=== PATIENT | male | born 1980 | race Caucasian/White ===

== ENCOUNTER 2023-04-22 08:20 | Observation (INO) | payer OTHER, SELFPAY ==
[2023-04-22] VITALS (10 sets, daily range): BP systolic 130–150; BP diastolic 69–91; PULSE 59–77; RESP 16–18; TEMP 36.7–37.2; O2SAT 97–100; BMI 26.3
--- NOTE | 2023-04-22 | ECHO_ITS ---
Patient Info Name: Bertin Britt Age: 42 years : 1980 Gender: Male Ht: 69 in Wt: 178 lbs BSA: 2.00 m2 HR: 63 bpm BP: 131 / 90 mmHg Heart Rhythm: Sinus Rhythm Technical Quality: Good Exam Date: 04/22/2023 3:46 PM Exam Location: [facility] Patient Status: Outpatient Admit Date: 04/22/2023 Staff Ordering Physician: Darien Champion APRN Front End Specialist: Tiarra Lagunas RDCS Attending Provider: Rebceca Le DO Referring Physician: Akira RUSSELL; Exam Type: CA echo doppler w bubble study Study Info Indications - dysphasia, TIA Complete two-dimensional, color flow and Doppler transthoracic echocardiogram is performed with agitated saline. Contrast/Agitated Saline Contrast/Ag. Saline: Agitated Saline Amount: 20.00 ml Administered By: Freda Tanner RN Existing IV Access: Yes IV Access Condition: patent with no signs of infiltration Summary 1. Left ventricular chamber dimension is normal. 2. Left ventricular systolic function is normal, estimated at 60-65%. 3. The left ventricular diastolic function is normal. 4. E/e' 6 is not elevated. 5. There is mild aortic valve sclerosis. 6. There is trace tricuspid valve regurgitation. Left Ventricle E/e' 6 is not elevated. Left ventricular chamber dimension is normal. Left ventricular systolic function is normal, estimated at 60-65%. The left ventricular diastolic function is normal. Right Ventricle Right ventricular systolic function is normal and with normal TAPSE 2.8 cm. Right ventricular chamber dimension is normal. Left Atria Left atrial chamber dimension is normal. Right Atria Right atrial chamber dimension is normal. Atrial Septum Agitated saline injection with and without valsalva maneuver opacified right side cardiac chambers without shunt to left side cardiac chambers. Intact interatrial septum visualized by 2D and agitated saline imaging. Aortic Valve The aortic valve is trileaflet. There is mild aortic valve sclerosis. There is no aortic valve stenosis. There is no aortic valve regurgitation. Pulmonic Valve There is no pulmonic regurgitation. Mitral Valve There is no mitral valve stenosis. There is no mitral valve regurgitation. Tricuspid Valve There is trace tricuspid valve regurgitation. RVSP is not calculated due to an inadequate TR jet. Pericardium/Pleural There is no pericardial effusion. Inferior Vena Cava Normal inferior vena cava with >50% collapse upon inspiration consistent with normal right atrial pressure, 5 mmHg. Aorta The aortic root size at the sinus of Valsalva is normal. Left Ventricular Outflow Tract Name Value Normal LVOT 2D LVOT Diameter 2.0 cm LVOT Doppler LVOT Peak Gradient 3 mmHg LVOT Mean Gradient 2 mmHg LVOT VTI 15 cm LVOT VTI/AV VTI Ratio 0.6 LVOT Stroke Volume 48 ml LVOT CO 2.9 l/min LVOT CI 1.5 l/min/m2 Pulmonic Valve Na
--- NOTE | ~2023-04-22 | MR_ITS ---
MRI of the brain Clinical History: Dysphagia, headache Technique: Axial and sagittal T1-weighted images were acquired. These were followed by axial T2-weigh oliverio, diffusion weighted, gradient, and FLAIR images. Following intravenous administration of 15 cc Mu ltiHance gadolinium, T1-weighted fat-sat imaging was performed in the axial and coronal planes. Findings: No abnormal signal seen in the brain parenchyma. No acute infarct, intracranial hemorrhage, or mass lesion. Ventricles and subarachnoid spaces are unremarkable. Orbits are unremarkable. Paranasal sinuses and m astoid air cells are clear. Major intracranial flow voids are intact. Sagittal midline structures are intact. No abnormal postcontrast enhancement identified. IMPRESSION: Unremarkable exam. Reviewed, dictated and finalized at location M. IMPRESSION: Unremarkable exam.
--- NOTE | ~2023-04-22 | US_ITS ---
EXAMINATION: US carotid duplex BI DATE: 04/22/2023 16:59 INDICATION: Dysphasia. Transient ischemic episode. TECHNIQUE: Grayscale, color Doppler, and pulsed Doppler images of the cervical carotid arteries were obtained. The degree of vessel stenosis is placed in one of the following categories: normal, <50%, 5 0-69%, >=70% but less than near-occlusion, near-occlusion, or total occlusion. Note that percent sten osis relative to normal distal artery lumen diameter is indirectly measured from velocity measurement s as described by Pedro, et al. Radiology 2003; 229:340-346. COMPARISON: None. FINDINGS: RIGHT: The right common carotid artery (CCA) peak systolic velocity (PSV) is 107 cm/s. The right internal ca rotid artery (ICA) PSV is 77 cm/s. The right ICA end-diastolic velocity (EDV) is 36 cm/s. The right I CA/CCA PSV ratio is 0.7. Grayscale and color Doppler images demonstrate no appreciable stenosis or pl aque in the ICA. The external carotid artery (ECA) PSV is 86 cm/s. There is antegrade flow in the rig ht vertebral artery. LEFT: The left CCA PSV is 93 cm/s. The left ICA PSV is 85 cm/s. The left ICA EDV is 37 cm/s. The left ICA/C CA PSV ratio is 0.9. Grayscale and color Doppler images yield an estimate of <50% diameter reduction from minimal plaque in the ICA. The ECA PSV is 111 cm/s. There is antegrade flow in the left vertebra l artery. IMPRESSION: 1. No appreciable plaque or stenosis in the right internal carotid artery. 2. <50% stenosis from minimal plaque in the left internal carotid artery. Reviewed, dictated and finalized at location A.
--- NOTE | ~2023-04-22 | CT_ITS ---
EXAMINATION: CT BRAIN W/O DATE: 04/22/2023 08:33 INDICATION: Memory issues. TECHNIQUE: Computed tomography (CT) of the head was performed without intravenous contrast. The dose- length product was 605.33 mGy-cm. Automated exposure control and iterative reconstruction technique w ere employed. COMPARISON: No prior studies for comparison. FINDINGS: Normal brain parenchymal volume for age. Normal -white differentiation. No acute intrac ranial hemorrhage, infarction, mass or mass effect. No ventriculomegaly or midline shift. Midline sagittal images demonstrate a normal corpus callosum, c raniovertebral junction and sella turcica. Basilar cisterns are patent. There is minimal mucosal thickening of the ethmoid and right frontal sinuses. Mastoids are pneumatize d. No depressed skull fractures. IMPRESSION: 1. No acute intracranial abnormality. Reviewed, dictated and finalized at location L.
--- NOTE | ~2023-04-22 | XR_ITS ---
EXAMINATION: XR chest 1V portable 04/22/2023 09:02 INDICATION: CVA. Weakness. PROCEDURE: AP portable chest COMPARISON: No prior studies for comparison. FINDINGS: The lungs are clear. The cardiomediastinal silhouette is within normal limits. There are no pleural effusions. There is no pneumothorax suspected. IMPRESSION: 1: NO ACUTE CARDIOPULMONARY DISEASE. Reviewed, dictated and finalized at location L.
--- NOTE | 2023-04-22 08:27 | ECG_ITS ---
Measurements Intervals [place] Rate: 90 P: 61 LA: 136 QRS: 44 QRSD: 94 T: -4 QT: 351 QTc: 431 Interpretive Statements SINUS RHYTHM NONSPECIFIC ST & T-WAVE ABNORMALITY NO PREVIOUS ECG AVAILABLE FOR COMPARISON Electronically Signed On 04-22-2023 16:16:53 CDT by Ephraim Richardson M.D.
[2023-04-22 08:30] LABS: Glucose Point of Care 134 mg/dl (65-105)
[2023-04-22 08:42] LABS: Basophils Percent Auto 0.4 % (0.2-1.2); Eosinophils Absolute Auto 0.1 K/mm3 (0-0.3); Eosinophils Percent Auto 1.2 % (0-4.4); Hematocrit 42.9 % (42.0-52.0); Hemoglobin 14.7 g/dL (14.0-18.0); Immature Granulocyte Absolute 0.01 K/mm3 (0.00-0.031); Immature Granulocyte Percent A 0.2 % (0-0.5); Lymphocytes Absolute Auto 2.51 K/mm3 (0.9-3.2); Lymphocytes Percent Auto 44.3 % (18.3-44.2); Mean Corpuscular HGB Conc 34.3 g/dl (32-36); Mean Corpuscular Hemoglobin 31.1 pg (26-34); Mean Corpuscular Volume 90.7 fl (80-100); Mean Platelet Volume 9.1 fl (7.4-10.4); Monocytes Absolute Auto 0.5 K/mm3 (0.1-0.6); Monocytes Percent Auto 9.4 % (2.6-8.5); Neutrophils Absolute Auto 2.5 K/mm3 (1.3-6.7); Neutrophils Percent Auto 44.5 % (45.5-73.1); Platelet Count Result 264 k/mm3 (150-375); Red Blood Count 4.73 M/mm3 (4.6-6.20); Red Cell Distribution Width 12.8 % (11.5-14.5); White Blood Count 5.7 K/mm3 (4.5-10.0)
[2023-04-22 08:53] LABS: Partial Thromboplastin Time 29.8 SECONDS (22.3-36.8)
[2023-04-22 08:54] LABS: Alanine Aminotransferase 33 U/L (6-50); Alkaline Phosphatase 55 U/L (38-126); Anion Gap 7 mmol/L (8-16); Aspartate Amino Transferase 35 U/L (17-59); Bilirubin,Total 0.8 mg/dL (0.2-1.3); Blood Urea Nitrogen 22 mg/dL (9-20); Calcium 9.5 mg/dL (8.4-10.2); Carbon Dioxide 31 mmol/L (22-30); Chloride 102 mmol/L (98-107); Estimated CRCL calculation 96 ml/min; Estimated Glomerular Filt Rate > 60; Glucose 124 mg/dL (65-110); Potassium 3.6 mmol/L (3.4-5.0); Sodium 140 mmol/L (137-145)
[2023-04-22 09:06] LABS: Troponin I < 0.012 ng/mL (0.000-0.034)
--- NOTE | 2023-04-22 10:01 | ED.NEUROSD ---
HPI - Neuro Symptoms/Deficit General Chief Complaint: Suspected CVA Stated Complaint: memory issues, focus issues Time Seen by Provider: 04/22/23 08:40 History of Present Illness HPI Narrative: Pt states had period of difficulty concentrating. Pt couldn't remember names of clients and partners and was confused. Pt thought he might have covid so did home test which was negative. Pt says is a little better now but still not himself. Pt denies LAZO or focal neuro symptoms. Related Data Home Medications Medication Instructions Recorded Confirmed erythromycin with ethanol 2 % 1 applic topical BID PRN Dry skin 04/22/23 04/22/23 topical gel Allergies Allergy/AdvReac Type Severity Reaction Status Date / Time NKDA Allergy Unknown Uncoded 04/26/03 12:15 NKFA Allergy Unknown Uncoded 04/26/03 12:15 Review of Systems Review of Systems: All systems reviewed & are unremarkable except as noted in HPI and below PMFSH Past Medical History Medical History (Updated 04/22/23 @ 16:01 by Kaur Van NP) Headache Surgical History Surgical History H/O sinus surgery H/O vasectomy Family History Family History Mother Hyperlipidemia Father Hypertension Sibling Hypertension Social History Social History (Updated 04/22/23 @ 16:02 by Kaur Van NP) Social History: The patient lives with his and has children. 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 Code status full code Smoking status: Never smoker Alcohol intake: current Drinks per week: 14 Alcohol use details: 2 drinks daily on average, may drink 6 or more only 1 or 2 times a month Substance use: never Lack of Transportation: No Lack of Food: Never True Current Housing: I Have Housing Concerned About Future Housing: No Difficulty Paying Gas/Electric Bills: No Difficulty Paying for Meds: No Currently Unemployed: No Education: Master's Degree or Higher Difficulty w/ Childcare or Family Care: No Living arrangements: with family Additional living arrangements comments: , son and 2 dogs Occupation/Education: occupation 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 Gender identity (if verbalized by the patient): Male Sexual Orientation (if Verbalized by the Patient): Straight or Heterosexual Spiritual care concerns: No Exam Const: General: cooperative and no acute distress Nutritional Appearance: average body habitus Orientation/consciousness: patient oriented x3 Limitations: no limitations Eyes: General: appearance normal, both eyes and all related structures Eyelids: eyelids normal Conjunctivae: conjunctivae normal Neck: Neck: normal visual inspection and full ROM Resp: Effort & Inspection: normal respiratory effort Auscultation: clear to auscultation bilaterally Cardio: Rate: regular rate Rhythm: regular rhythm GI: Inspection: normal to inspection Auscultation: normal bowel sounds Back/Spine/Pelvis: Back: no CVA tenderness Skin: General skin exam: normal color and no rashes or lesions noted Neuro: General: patient oriented x3, moves all extremities, no meningeal signs, no focal motor deficits and CN's II-XI intact bilaterally Cognition (Neuro): normal cognition Speech: normal speech Extrem: General: normal to inspection and full ROM Psych: Appearance: grossly normal Mental Status: mental status grossly normal Speech and movement: Normal speech and movement present Affect: normal affect Attitude: cooperative Thought process: Normal thought process present Thought content: Yes Normal thought content present Insight: Good insight present (Psych) Judgement: Good judgement present (Psych) Course Vital Signs Vital signs: Vital Signs Temperature 98.9 F 04/22/23 08:24 Pulse Rate 77 04/22/23 08:24 Respir
[2023-04-22] MEDS: ASPIRIN 81 MG CHEWABLE TABLET 324 MG PO (10:38)
[2023-04-22 12:35] LABS: Amphetamine Screen Urine Negative (Negative); Barbiturate Screen Urine Negative (Negative); Benzodiazepines Screen Urine Negative (Negative); Cannabinoid Screen Urine Negative (Negative); Cocaine Screen Urine Negative (Negative); Methadone Screen Urine Negative (Negative); Opiate Screen Urine Negative (Negative); Phencyclidine Screen Urine Negative (Negative)
--- NOTE | 2023-04-22 13:17 | PM.IMHP ---
H&P: HPI History of Present Illness Date/Time: 04/22/23 13:17 Chief Complaint: Suspected CVA Narrative: This is a 42-year-old male patient who has no past medical history. The patient woke up around 6 or 630 this morning and had no difficulties. The patient stated that around 8:00 a.m. this morning he was having some blurred vision and difficulty seeing. The patient stated that he was forgetting things that he normally knows how to do. The patient was forgetting coworkers names that he was per normally well aware of. And he stated that he had multiple emails and was not able to respond to them. The patient stated that he had COVID 6 months ago and felt like he may have brain fog like he did when he had COVID. The patient to go home test of COVID which was negative. The patient stated that he had a 3 day weekend and was very active riding on a long bike ride. The patient can recall the events of this morning as well as the weekend. However earlier this morning he could not remember people's names are remember how to respond to people's emails. It was also reported that he was texting abnormal things to his . And he stated that he knew what he wanted to say and right but it came out differently. The patient stated that his speech was abnormal as well. The patient stated that after 8:00 a.m. he felt that he was not right any took an aspirin after purchasing them from the pharmacy. The patient is now back to his baseline. He has no focal weakness. His vision is now clear. Chest x-ray was read as no acute cardiopulmonary disease. Head CT was read as no acute intracranial abnormality. His total CK was 158. His urine drug screen was found to be negative. The patient was given an aspirin here. The patient is being admitted to observation status on the date of service of 04/22/2023. Review of Systems Review of Systems: All systems reviewed & are unremarkable except as noted in HPI and below Constitutional: Constitutional: Reports as per HPI and Reports no additional constitutional complaints Eyes: Eyes: Reports as per HPI and Reports no additional eye complaints ENT: Reports system reviewed and no additional complaints, except as documented and Reports Normal hearing present Cardiovascular: Cardiovascular: Reports no additional cardiovascular complaints Respiratory: Respiratory: Reports no additional respiratory complaints and Reports no additional respiratory complaints Gastrointestinal: Gastrointestinal: Reports as per HPI and Reports no additional gastrointestinal complaints Musculoskeletal: Musculoskeletal: Reports no additional musculoskeletal complaints Integumentary/Breasts: Skin/Breast: Reports system reviewed and no additional complaints, except as docu and Reports as per HPI Neurologic: Reports system reviewed and no additional complaints, except as documented, Reports as per HPI and Reports Normal hearing present Psychiatric: Psychiatric: Reports no additional psychiatric complaints and Reports as per HPI Endocrine: Endocrine: Reports no additional endocrine complaints Hematologic/Lymphatic: Hematologic/Lymphatic: Reports no additional hematologic/lymphatic complaints Allergic/Immunologic: Allergic/Immunologic: Reports no additional allergic/immunologic complaints [facility] Past Medical History Medical History (Updated 04/22/23 @ 16:01 by Kaur Van NP) Headache Surgical History Surgical History H/O sinus surgery H/O vasectomy Family History Family History Mother Hyperlipidemia Father Hypertension Sibling Hypertension Social History Social History (Updated 04/22/23 @ 16:02 by Kaur Van NP) Social History: The patient lives with his and has children. 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 Code status full code Smoking status: Never smo
[2023-04-22 15:35] LABS: Creatine Kinase 158 U/L (55-170)
[2023-04-22] MEDS: ACETAMINOPHEN 325 MG TABLET 650 MG PO (18:58)
[2023-04-22 20:34] LABS: Cholesterol 143 mg/dL (0-200); HDL Direct 48 mg/dL; Triglycerides 82 mg/dL (<150)
[2023-04-22 20:39] LABS: LDL Cholesterol Direct 70 mg/dL
[2023-04-23] VITALS: PULSE 59
[2023-04-23 04:00] VITALS: PULSE 68
[2023-04-23 06:00] VITALS: BP 120/68; PULSE 77; RESP 20; TEMP 36.7; O2SAT 100
[2023-04-23 06:40] LABS: Basophils Percent Auto 0.5 % (0.2-1.2); Eosinophils Absolute Auto 0.1 K/mm3 (0-0.3); Eosinophils Percent Auto 1.2 % (0-4.4); Hematocrit 43.3 % (42.0-52.0); Hemoglobin 14.4 g/dL (14.0-18.0); Immature Granulocyte Absolute 0.02 K/mm3 (0.00-0.031); Immature Granulocyte Percent A 0.3 % (0-0.5); Lymphocytes Absolute Auto 2.47 K/mm3 (0.9-3.2); Lymphocytes Percent Auto 37.9 % (18.3-44.2); Mean Corpuscular HGB Conc 33.3 g/dl (32-36); Mean Corpuscular Hemoglobin 30.7 pg (26-34); Mean Corpuscular Volume 92.3 fl (80-100); Mean Platelet Volume 9.6 fl (7.4-10.4); Monocytes Absolute Auto 0.7 K/mm3 (0.1-0.6); Monocytes Percent Auto 10.1 % (2.6-8.5); Neutrophils Absolute Auto 3.3 K/mm3 (1.3-6.7); Platelet Count Result 262 k/mm3 (150-375); Red Blood Count 4.69 M/mm3 (4.6-6.20); Red Cell Distribution Width 12.9 % (11.5-14.5); White Blood Count 6.5 K/mm3 (4.5-10.0)
[2023-04-23 06:51] LABS: Anion Gap 6 mmol/L (8-16); Blood Urea Nitrogen 22 mg/dL (9-20); Calcium 8.5 mg/dL (8.4-10.2); Carbon Dioxide 30 mmol/L (22-30); Chloride 104 mmol/L (98-107); Cholesterol 147 mg/dL (0-200); Estimated CRCL calculation 87 ml/min; Estimated Glomerular Filt Rate > 60; Glucose 94 mg/dL (65-110); HDL Direct 45 mg/dL; Magnesium 2.2 mg/dL (1.6-2.3); Sodium 140 mmol/L (137-145); Triglycerides 104 mg/dL (<150)
[2023-04-23 07:01] LABS: LDL Cholesterol Direct 72 mg/dL
[2023-04-23] MEDS: ASPIRIN 81 MG ENTERIC TABLET PO (09:27)
--- NOTE | 2023-04-23 11:38 | WPDNEURCNPN ---
Assessment and Plan Assessment and plan (1) Acute confusion: Code(s): R41.0 - Disorientation, unspecified Status: Acute (2) Headache: Code(s): R51.9 - Headache, unspecified Status: Acute Plan Mr. Britt is a 42 year old male with no significant past medical history presenting due to episode of transient confusion. Etiology is unclear but MRI brain was unrevealing. Could be migraine with confusional aura, but headache was not significant and patient has no prior history of migraines. Could also be focal seizure, although episode was witnessed so unclear if there were any stereotypical movements at the time. Patient denies any major changes in stressors so it is hard to attribute it to stress. - Ok to discharge - Would like to have him follow-up in Neurology clinic in 3 months - I did discuss that he should abstain from driving until then Consult date: 04/23/23 Reason for consult: Confusion HPI: Bertin Britt is a 42 year old male with no significant past medical history presenting for evaluation of confusion. Patient woke up yesterday feeling normal. However about two hours later, he was having difficulty comprehending what he was reading and was not able to remember things that he would typically know, such as his coworkers name. He took a COVID test at home and it was negative. He was able to drive so he was driving to work, but felt that it was unsafe so went to the emergency room. In the ED he was trying to text his , but he now reports that his texts were nonsensical at the time. After a few hours, patient did return to baseline. His CT head in the ED was negative for acute process. Urine drug screen was negative as well. MRI brain was normal. Patient denies any personal or family history of seizures. He has had several concussions in the past but no other significant traumatic brain injury. He denies any family history of clotting issues or stroke at an early age. He did have a mild frontal headache and photophobia with the episode, but does not typically get headaches or migraines. Patient feels well today and denies any other concerns. He denies any recent change in stressors. He feels that his stress level has actually gone down in the past year. He will also be on vacation next week. Review of Systems Constitutional: Constitutional: Denies chills, Denies fever(s) and Denies weight loss Eyes: Eyes: Denies diplopia and Denies loss of vision ENT: Denies dizziness, Denies hearing loss and Denies tinnitus Cardiovascular: Cardiovascular: Denies chest pain, Denies syncope and Denies dyspnea Respiratory: Respiratory: Denies cough, Denies dyspnea and Denies wheezing Gastrointestinal: Gastrointestinal: Denies abdominal pain, Denies change in bowel habits and Denies vomiting Genitourinary: Genitourinary: Denies urinary incontinence Musculoskeletal: Musculoskeletal: Denies arthralgias and Denies joint swelling Integumentary/Breasts: Skin/Breast: Denies new lesions and Denies rash Neurologic: Reports as per HPI, Denies dizziness, Denies syncope and Denies loss of vision Psychiatric: Psychiatric: Denies anxiety and Denies depression Endocrine: Endocrine: Denies cold intolerance and Denies heat intolerance Hematologic/Lymphatic: Hematologic/Lymphatic: Denies easy bleeding and Denies easy bruising Allergic/Immunologic: Allergic/Immunologic: Denies no additional allergic/immunologic complaints and Denies wheezing PMFSH Past Medical History Medical History Headache Surgical History Surgical History H/O sinus surgery H/O vasectomy Family History Family History Mother Hyperlipidemia Father Hypertension Sibling Hypertension Social History Social History Social History: The patient hakan
--- NOTE | 2023-04-23 12:43 | PM.DS ---
DS: Admitting Diagnosis Discharge Date 04/23/23 Admitting Diagnosis headache/confusion DS: Discharge Diagnosis Discharge Diagnosis (1) Acute confusion: Code(s): R41.0 - Disorientation, unspecified Status: Acute (2) Headache: Code(s): R51.9 - Headache, unspecified Status: Acute DS: Summary Hospital Course Hospital Course: Mr. Britt is a 42 year old male with no significant past medical history presenting due to episode of transient confusion. His CT head in the ED was negative for acute process. Urine drug screen was negative as well. MRI brain was normal. Could be migraine with confusional aura, but headache was not significant and patient has no prior history of migraines. Could also be focal seizure, although episode was witnessed so unclear if there were any stereotypical movements at the time. Patient denies any major changes in stressors so it is hard to attribute it to stress. - Ok to discharge - Would like to have him follow-up in Neurology clinic in 3 months - he should abstain from driving until then Time Spent with Patient Time attestation: Total time spent providing and/or coordinating discharge services: DS: Data Data Completed and Pending Labs on day of discharge: Labs from last 24 hours 04/23/23 04/22/23 05:36 15:03 WBC 6.5 RBC 4.69 Hgb 14.4 Hct 43.3 MCV 92.3 MCH 30.7 MCHC 33.3 RDW 12.9 Plt Count 262 MPV 9.6 Immature Gran % (Auto) 0.3 Neut % (Auto) 50.0 Lymph % (Auto) 37.9 [place] % (Auto) 10.1 H Eos % (Auto) 1.2 Baso % (Auto) 0.5 Lymph # (Auto) 2.47 [place] # (Auto) 0.7 H Eos # (Auto) 0.1 Baso # (Auto) 0.0 Abs Immat Gran (auto) 0.02 Absolute Neuts (auto) 3.3 Absolute Nucleated RBC 0.0 Nucleated RBC % 0.0 Sodium 140 Potassium 4.0 Chloride 104 Carbon Dioxide 30 Anion Gap 6 L BUN 22 H Creatinine 1.00 Estim Creat Clear Calc 87 Estimated GFR > 60 Glucose 94 Calcium 8.5 Magnesium 2.2 Total Creatine Kinase 158 Triglycerides 104 82 Cholesterol 147 143 LDL Cholesterol Direct 72 70 HDL Direct 45 48 Discharge Plan Discharge Consulting providers: Lulu Vallejo Discharging Clinician: Tony Meier Anticipated Discharge Date/Time: 04/23/23 12:42 Patient Disposition: Home, Self-Care Activity: no preference Diet: heart healthy Patient Instructions: Antibiotic Form Stand Alone Forms: General Discharge Information Follow-up/Referrals: Lew Caal MD [Primary Care Provider] - Discharge Medications: Continued erythromycin with ethanol 2 % gel 1 applic topical BID PRN (Reason: Dry skin ) Patient Comments: Uses it for bacterial infections when shaving. Date of admission: 04/22/23 10:19 Primary Care Provider: eLw Caal Admitting Provider: Rebecca Le Attending physician on admission: Tony Meier Condition: Improved
--- NOTE | 2023-04-23 13:33 | PCCCNOTE ---
On 04/23/23, the student, [Babs Rowell], provided care and completed [facility] documentation on this patient. I have reviewed the student's documentation and agree with the findings.
== END 2023-04-23 12:55 | disposition home or self-care (01) ==
LOC: ANHED 10:18 → ANH2MED 10:53
PROVIDERS: Nurse Practitioner; Admitting Provider Student in an Organized Health Care Education/Training Program; Emergency Provider Emergency Medicine; PCP Family Medicine Adolescent Medicine; Visit Provider Hospitalist
DX: R41.840 Attention and concentration deficit (principal); R41.0 Disorientation, unspecified; H53.8 Other visual disturbances; I35.8 Other nonrheumatic aortic valve disorders; R51.9 Headache, unspecified; R47.02 Dysphasia; Z86.16 Personal history of COVID-19; Z20.822 Contact with and (suspected) exposure to COVID-19; F10.90 Alcohol use, unspecified, uncomplicated
CPT/HCPCS: 36415; 70450; 70553; 71045; 80048; 80053; 80061; 80307; 82550; 82948; 83735; 84484; 85025; 85610; 85730; 93005; 93306; 93880; 96375; 99285; A9270; A9577; G0378